=== PATIENT | male | born 1970 | race Caucasian/White ===

== ENCOUNTER 2024-07-13 22:31 | Emergency (ER) | payer BC, SELFPAY ==
[2024-07-13 22:39] VITALS: BP 162/92
[2024-07-13 22:58] LABS: % Basophils 0.7 % (0-2); % Eosinophils 1.4 % (0-6); % Immature Granulocytes 0.1 % (0-0.5); % Lymphocytes 35.9 % (20.5-51.1); % Monocytes 7.7 % (1.7-9.3); % Neutrophils 54.2 % (42.2-75.2); Absolute Basophils 0.1 10^3/uL (0-0.2); Absolute Eosinophils 0.1 10^3/uL (0-0.7); Absolute Lymphocytes 3.2 10^3/uL (1.2-3.4); Absolute Monocytes 0.7 10^3/uL (0.1-0.6); Absolute Neutrophils 4.8 10^3/uL (1.4-6.5); Hematocrit 42.3 % (39.0-52.0); Hemoglobin 14.3 g/dL (13.0-18.0); Mean Corp Hgb Conc. 33.8 g/dL (33.0-37.0); Mean Corpuscular Hgb 30.7 pg (27.0-31.0); Mean Corpuscular Volume 90.8 fL (80.0-94.0); Nucleated Red Blood Cells % 0 % (-); Platelet Count 158 10^3/uL (130-400); Red Blood Cell Count 4.66 10^6/uL (4.70-6.10); Red Cell Dist. Width 12.4 % (11.5-14.5); White Blood Cell Count 8.8 10^3/uL (4.8-10.8)
[2024-07-13 23:13] LABS: ALT (SGPT) 37 U/L (0-50); AST (SGOT) 39 U/L (17-59); Albumin 4.9 g/dl (3.5-5.0); Alkaline Phosphatase 90 U/L (38-126); Blood Urea Nitrogen 18 mg/dl (9-20); Calcium 9.9 mg/dl (8.4-10.2); Carbon Dioxide 27 mmol/L (22-30); Chloride 99 mmol/L (98-107); Glucose 103 mg/dl (70-99); Potassium 4.9 mmol/L (3.5-5.1); Sodium 136 mmol/L (135-145); Total Bilirubin 0.9 mg/dl (0.2-1.3); Total Protein 8.6 g/dl (6.3-8.2); eGFR > 60.00
[2024-07-13 23:25] LABS: Troponin I 0.014 ng/ml
[2024-07-14 01:53] VITALS: BP 136/83
[2024-07-14 01:55] VITALS: BMI 28.4
[2024-07-14 02:00] VITALS: BP 135/84
[2024-07-14 03:00] VITALS: BP 129/75
[2024-07-14 04:00] VITALS: BP 126/68
[2024-07-14] MEDS: LOW STRENGTH ASPIRIN 324 MG PO (04:13)
--- NOTE | 2024-07-14 04:27 | ED.GENMED ---
History of Present Illness
General
Chief Complaint: Chest Pain
Source: patient and family
Exam Limitations: none
Time Seen by Provider: 07/14/24 04:08
Nursing documentation reviewed up to this point in time: agreed with
History of Present Illness
History of Present Illness:
Pleasant 54-year-old male presents to the emergency with substernal chest pain and elevated blood pressure. Patient states that the pain is substernal and does not radiate. Patient has a history of AAA with repair and a new AAA that has not been
repaired yet but is being monitored by [facility]. Patient states that when his first AAA was discovered, it caused no discomfort. Patient also has a history of hypertension and hyperlipidemia. Patient denies fever, chills, nausea
or vomiting. Denies headache, blurry vision or paresthesias.
Review of Systems
Review of Systems
Allergies reviewed?: Yes
All Other Systems: ROS reviewed and negative except as documented in HPI and ROS
Constitutional: Reports no symptoms
EENT: Reports no symptoms
Respiratory: Reports no symptoms
Cardiac: Reports chest pain
ABD/GI: Reports abdominal pain
: Reports no symptoms
Musculoskeletal: Reports no symptoms
Skin: Reports no symptoms
Neurological: Reports no symptoms
Endocrine: Reports no symptoms
Hematologic/Lymphatic: Reports no symptoms
Psychiatric: Reports no symptoms
Phy Exam
General Physical Exam
General Presentation: well appearing and no apparent distress
General Skin: warm and dry
General Habitus: normal
General Mental: alert
General Hydration: appears well hydrated
ENT Exam
ENT Exam: EOMI, pharynx normal, neck supple and normocephalic
Eye Exam
Eye Exam: PERRL, cornea clear and conjunctiva normal
Cardiovascular Exam
Cardiovascular Exam: regular rate/rhythm, no edema, no murmur and normal peripheral pulses
Pulmonary Exam
Pulmonary Exam: lungs clear, no respiratory distress, no rales, no crackles, no rhonchi, no stridor, no wheezing and no cough
Gastrointestinal Exam
Gastrointestinal Exam: normal bowel sounds, non tender, soft, no organomegaly, no pulsatile mass and non distended
Neurological Exam
Neurological Exam: alert, oriented x3, no motor deficits and speech normal
Musculoskeletal Exam
Musculoskeletal Exam: full ROM and no edema
Skin Exam
Skin Exam: normal color, warm/dry, no rash and no petechia
Psychiatric Exam
Psychiatric Exam: normal mood/affect
Scores
Heart Score for Chest Pain Patients
STEMI patient?: No
History: Slightly or Non-Suspicious
ECG: Normal
Age: >45 - <65 years
Risk Factors: 1 or 2 Risk Factors
Troponin: </= Normal Limit
Heart Score for Chest Pain Patients: 2
Heart Score Risk: 2.5% MACE over next 6 weeks
Course
Orders/Labs/Results
Orders:
Orders
07/13/24 22:33
EKG [Electrocardiogram (*1)] Urgent
Reason for Study: Chest Pain
EKG- Treatment ONCE
07/13/24 22:51
Complete Blood Count/With Diff Urgent
Comprehensive Metabolic Panel Urgent
Troponin I Urgent
07/14/24 04:09
Troponin I Urgent
07/14/24 04:12
Aspirin Chewable [Low Strength Aspirin] 324 mg .ROUTE .STK-MED ONE
07/14/24 04:13
Aspirin Chewable [Low Strength Aspirin] 324 mg PO NOW STA
07/14/24 04:26
CT Chest/abd/pelvis Angio W/wo Urgent
Comment:
Reason For Exam: cp with hx od AAA x2
07/14/24 05:05
Sucralfate Suspension [Carafate Suspension] 1 gm PO NOW STA
Abnormal Lab Results
07/13/24
22:51
RBC 4.66 L 10^6/uL
(4.70-6.10)
Absolute Monos (auto) 0.7 H 10^3/uL
(0.1-0.6)
Glucose 103 H mg/dl
(70-99)
Total Protein 8.6 H g/dl
(6.3-8.2)
07/13/24 22:51
07/13/24 22:51
Vital Signs
Initial and Last Documented VS:
Initial Vital Signs
Temp Pulse Resp BP Pulse Ox
97.7 F 58 16 162/92 98
07/13/24 22:39 07/13/24 22:39 07/13/24 22:39 07/13/24 22:39 07/13/24 22:39
Last Documented Vital Signs
Temp Pulse Resp BP Pulse Ox
97.7 F 56 20 141/77 95
07/13/24 22:39 07/14/24 05:30 07/14/24 05:30 07/14/24 05:00 07/14/24 05:30
*Critical Care Note
Total Time (30-74mins, 75-104mins- exclusive of procedures): Not Applicable
Update Note
Update Note:
CTA CHEST, ABDOMEN, PELVIS
IMPRESSION
No priors available for comparison.
1. No intramural hematoma or penetrating atherosclerotic ulcer. No thoracic aortic aneurysm or acute aortic dissection. No central pulmonary embolism. Calcified soft tissue mass along the medial aspect of the descending thoracic aorta, may
represent sequela of prior repair.
2. Left lower lobe atelectasis
Incidentals:
- Calcified coronary atherosclerosis.
- No acute osseous abnormality.
- No thoracic lymphadenopathy or suspicious lymph nodes.
ABDOMEN/PELVIS:
1. Suprarenal abdominal aortic aneurysm at the level of the celiac axis measuring 4.6 x 4.1 cm, with adjacent clips, may represent site of prior repair. The celiac artery, SMA, MUSA, and bilateral renal arteries remain patent. No evidence of acute
dissection.
2. No bowel obstruction. Normal gallbladder and appendix
Incidentals:
-Fecalized loops of small bowel suggestive of slow transit.
- No obstructive uropathy.
- No hepatic or pancreatic mass.
- No acute osseous abnormality.
- No acute abnormality within the visualized soft tissues.
Case discussed with Dr. Clemens of the ED at 459 AM ET.
Patient's troponin was negative. He is chest pain-free after the Carafate. He is ready to be discharged.
ED Attending Note
-
Portions of this chart may have been created with voice recognition software.� Occasional wrong word or��sound alike� substitutions may have occurred due to the inherent limitations of voice recognition software.
Discharge Plan
Departure
Patient Disposition: Home (Routine Discharge)
Date of Disposition: 07/14/24
Time of Disposition: 05:48
Patient with high blood pressure during this ER visit?: Yes
Condition: Good
Discharge Problem:
Chest pain, History of abdominal aortic aneurysm (AAA) repair
Instructions: Chest Pain CBC Follow Up, BLOOD PRESSURE
Referrals:
[facility] [Provider Group]
Jewel Zhang DO [Family Provider] -
Activity Restrictions/Additional Instructions:
It was a pleasure meeting you and taking part in your care. We hope for your continued healing and wellness.
Please read discharge instructions in their entirety. However, they are for general education and may not describe your exact diagnosis at discharge. Information on your ER visit and medical conditions were discussed with you along with appropriate
follow up information...
If indicated, please take your medications as instructed and indicated on discharge paperwork.
Please schedule a follow up appointment as directed. Call to schedule an appointment
Please return to the emergency department with ANY change in, persisting, or worsening of symptoms. If any of your symptoms do not improve, or persist, or become more severe within 6-12 hours, please return to the emergency department for further
care.
Please return to the emergency department if you develop a headache, neck pain/stiffness, fever greater than 100.4F, chest pain, shortness of breath, persistent nausea, vomiting, slurred speech, difficulty walking, numbness/tingling, weakness, signs
of infection or any other symptoms that are worrisome to you.
If you have any questions or concerns please do not hesitate to call the Hospital at
Interventions
Interventions:
*Risk Screen - Suicide Last Done: 07/13/24 22:39
*General Assessment Last Done: 07/13/24 22:39
*Neglect/Abuse Screening Last Done: 07/13/24 22:39
ED- Fall Risk Assessment Last Done: 07/14/24 01:58
*ED COVID-19 Vaccine History Last Done: 07/13/24 22:39
ED- Cardiac Assessment Last Done: 07/14/24 01:58
Discharge Date and Time
Print Language: UPPER SORBIAN
[2024-07-14 04:44] LABS: Troponin I 0.013 ng/ml
[2024-07-14 05:00] VITALS: BP 141/77
[2024-07-14] MEDS: CARAFATE SUSPENSION 1 GM PO (05:20)
== END 2024-07-14 05:51 | disposition home or self-care (01) ==
LOC: EMR 22:31
PROVIDERS: Emergency Medicine; EMERGENCY PHYSICIAN Student in an Organized Health Care Education/Training Program; FAMILY PHYSICIAN General Practice
DX: R07.89 Other chest pain (principal); R10.9 Unspecified abdominal pain; I25.10 Atherosclerotic heart disease of native coronary artery without angina pectoris; I71.41 Pararenal abdominal aortic aneurysm, without rupture; J98.11 Atelectasis; E78.5 Hyperlipidemia, unspecified; I10 Essential (primary) hypertension; Z86.79 Personal history of other diseases of the circulatory system
CPT/HCPCS: 99285; 71275; 74174; 80053; 84484; 85025; 93005; Q9967

== ENCOUNTER → 2024-09-01 07:11 | Outpatient (REF) | payer BC, SELFPAY | LOC: HWRCS 07:11 | PROVIDERS: ATTENDING PHYSICIAN Internal Medicine; FAMILY PHYSICIAN General Practice | DX: R07.9 Chest pain, unspecified (principal); I25.10 Atherosclerotic heart disease of native coronary artery without angina pectoris; I10 Essential (primary) hypertension; E78.2 Mixed hyperlipidemia | CPT/HCPCS: 78452; 93017; A9500; J2785 ==

== ENCOUNTER 2024-09-14 09:20 | Day surgery (SDC) | payer BC, SELFPAY ==
[2024-09-08 09:01] VITALS: BMI 29.3
[2024-09-08 09:55] LABS: % Basophils 0.9 % (0-2); % Eosinophils 5.8 % (0-6); % Immature Granulocytes 0.1 % (0-0.5); % Lymphocytes 34.4 % (20.5-51.1); % Monocytes 7.5 % (1.7-9.3); % Neutrophils 51.3 % (42.2-75.2); Absolute Basophils 0.1 10^3/uL (0-0.2); Absolute Eosinophils 0.5 10^3/uL (0-0.7); Absolute Lymphocytes 2.7 10^3/uL (1.2-3.4); Absolute Monocytes 0.6 10^3/uL (0.1-0.6); Hematocrit 40.2 % (39.0-52.0); Hemoglobin 13.2 g/dL (13.0-18.0); Mean Corp Hgb Conc. 32.8 g/dL (33.0-37.0); Mean Corpuscular Hgb 30.6 pg (27.0-31.0); Mean Corpuscular Volume 93.3 fL (80.0-94.0); Mean Platelet Volume 10.9 fL (7.4-10.4); Nucleated Red Blood Cells % 0 % (-); Platelet Count 139 10^3/uL (130-400); Red Blood Cell Count 4.31 10^6/uL (4.70-6.10); Red Cell Dist. Width 12.7 % (11.5-14.5); White Blood Cell Count 7.8 10^3/uL (4.8-10.8)
[2024-09-08 10:07] LABS: ALT (SGPT) 29 U/L (0-50); AST (SGOT) 29 U/L (17-59); Albumin 4.6 g/dl (3.5-5.0); Alkaline Phosphatase 83 U/L (38-126); Blood Urea Nitrogen 16 mg/dl (9-20); Carbon Dioxide 28 mmol/L (22-30); Chloride 101 mmol/L (98-107); Estimated Creatinine Clearance 106 ml/min; Glucose 97 mg/dl (70-99); Potassium 4.6 mmol/L (3.5-5.1); Sodium 138 mmol/L (135-145); eGFR > 60.00
[2024-09-14] VITALS (12 sets, daily range): BP systolic 122–151; BP diastolic 66–86; BMI 28.0
[2024-09-14] MEDS: NSS 265 ML IV (10:16)
[2024-09-14] MEDS: NSS 1000 IV (14:26)
--- NOTE | 2024-09-14 18:12 | ITS.CL.PN ---
Radar Engineer - Procedure Note
Procedure
Procedure Note:
CARDIAC CATHETERIZATION REPORT
Date of Procedure: 09/14/2024
Referring: Dr. Emanuel Travis MD
Indication: Atypical chest pain, positive cardiac stress test
PROCEDURE(S)
1. left heart catheterization
2. coronary angiography
ACCESS: 6F right radial artery (closure: radial band)
CATHETERS
1. 6F JR4
2. 6F JL3.5
MODERATE SEDATION: 20 minutes of moderate sedation was utilized. An independent coroner/medical examiner was present to assist with and help manage the patient's level of consciousness and physiologic status.
ULTRASOUND GUIDED VASCULAR ACCESS (right radial artery): Ultrasound was utilized for vascular access. The vessel was visualized under ultrasound and noted to be patent. An image of the vessel was stored permanently in the patient's medical record.
Under direct ultrasound guidance, vascular access was obtained using a modified Seldinger technique and a 6 Upper Sor[place] sheath was placed.
HEMODYNAMIC DATA
LV 116/6 (EDP 11) mmHg
AO 118/70 (mean 92) mmHg
CORONARY ANGIOGRAPHY
Dominance: Right
LM: Short large vessel without significant disease
LAD: Large vessel giving rise to a large diagonal branch and wrapping around the apex. There is a 40% stenosis in the proximal vessel and otherwise mild luminal irregularities only.
LCx: Large vessel giving rise to a small OM1, moderate caliber branching OM2, large LPL1, several smaller LPL branches, and small LPDA. There is mild nonobstructive disease.
RCA: Small and nondominant with diffuse mild disease.
RADIATION: dose 354 mGy; DAP 24.1 Gy*cm2; fluoroscopy time 4.3 min
CONCLUSIONS
1. nonobstructive coronary artery disease in a left dominant system
2. normal LV filling pressure and no aortic stenosis
RECOMMENDATIONS
1. expectant management after cardiac catheterization via right radial approach
2. secondary prevention of coronary artery disease and risk factor modification
Copy to: Dr. Emanuel Travis MD (property claims manager); Dr. Jewel Zhang DO (PCP)
Signed: Neeraj Garcia MD, PhD
== END 2024-09-14 17:00 | disposition home or self-care (01) ==
LOC: CATH 09:20
PROVIDERS: ATTENDING PHYSICIAN Student in an Organized Health Care Education/Training Program; FAMILY PHYSICIAN General Practice; OTHER PHYSICIAN Internal Medicine
DX: I25.10 Atherosclerotic heart disease of native coronary artery without angina pectoris (principal); R07.2 Precordial pain; R00.1 Bradycardia, unspecified; M31.4 Aortic arch syndrome [Takayasu]; Z86.79 Personal history of other diseases of the circulatory system; E78.5 Hyperlipidemia, unspecified; I10 Essential (primary) hypertension; Z79.82 Long term (current) use of aspirin; Z79.899 Other long term (current) drug therapy; Z79.4 Long term (current) use of insulin
CPT/HCPCS: 99152; 36415; 76937; 80053; 85025; 93005; 93458; C1894; Q9967

== ENCOUNTER → 2024-09-29 09:13 | Outpatient (REF) | payer BC, SELFPAY | LOC: HWRCS 09:13 | PROVIDERS: ATTENDING PHYSICIAN Internal Medicine; FAMILY PHYSICIAN General Practice | DX: R07.9 Chest pain, unspecified (principal); I25.10 Atherosclerotic heart disease of native coronary artery without angina pectoris; I10 Essential (primary) hypertension; E78.2 Mixed hyperlipidemia | CPT/HCPCS: 93306 ==